=== PATIENT | female | born 1955 | race Caucasian/White ===

== ENCOUNTER → 2017-09-07 | Outpatient (CLI) | payer BC ==
[2017-09-07 07:46] LABS: Basophils # (A) 0.1 k/uL (0-0.2); Basophils % (A) 1 %; Eosinophils # (A) 0.2 k/uL (0-0.7); Eosinophils % (A) 4 %; HCT 44.6 % (34.0-46.0); HGB 14.7 gm/dL (11.4-16.0); Lymphocytes % (A) 37 %; MCH 28.9 pg (25.0-35.0); MCV 87.6 fL (80.0-100.0); Mean Platelet Volume 7.9; Monocytes # (A) 0.3 k/uL (0-1.0); Monocytes % (A) 5 %; Neutrophils # (A) 2.8 k/uL (1.3-7.7); Neutrophils % (A) 51 %; Platelet Count 163 k/uL (150-450); RBC 5.09 m/uL (3.80-5.40); RDW 13.9 % (11.5-15.5); WBC 5.3 k/uL (3.8-10.6)
[2017-09-07 07:56] LABS: ALT 27 U/L (9-52); AST 17 U/L (14-36); Albumin 4.2 g/dL (3.5-5.0); Alkaline Phosphatase 62 U/L (38-126); Anion Gap 13 mmol/L; Blood Urea Nitrogen 17 mg/dL (7-17); Calcium 9.4 mg/dL (8.4-10.2); Carbon Dioxide 25 mmol/L (22-30); Chloride 105 mmol/L (98-107); Cholesterol 192 mg/dL (<200); Glucose 101 mg/dL (74-99); HDL Cholesterol 42 mg/dL (40-60); LDL Cholesterol,Calculated 126 mg/dL (0-99); Potassium 4.4 mmol/L (3.5-5.1); Sodium 143 mmol/L (137-145); Total Bilirubin 0.5 mg/dL (0.2-1.3); Total Protein 6.7 g/dL (6.3-8.2); Triglycerides 121 mg/dL (<150)
[2017-09-07 08:10] LABS: T4, Free (Free Thyroxine) 1.08 ng/dL (0.78-2.19)
[2017-09-07 18:50] LABS: Hemoglobin A1C 5.9 % (4.0-6.0)
== END | disposition home or self-care (01) ==
LOC: LABWHC1 06:56
PROVIDERS: ATTEND Internal Medicine Geriatric Medicine
DX: G50.0 Trigeminal neuralgia (principal); R73.9 Hyperglycemia, unspecified; E03.9 Hypothyroidism, unspecified
CPT/HCPCS: 36415; 80053; 80061; 83036; 84439; 84443; 85025

== ENCOUNTER → 2018-11-21 | Outpatient (CLI) | payer MEDICARE ==
--- NOTE | 2018-11-25 08:39 | MM ---
Reason for exam: screening (asymptomatic). Last mammogram was performed 1 year and 9 months ago. History: Patient is postmenopausal. Family history of breast cancer in sister at age 70. Took estrogen for 15 years. Physical Findings: A clinical breast exam by your physician is recommended on an annual basis and results should be correlated with mammographic findings. MG Screening Mammo w CAD Bilateral CC and MLO view(s) were taken. XCCL view(s) were taken of the right breast. CV view(s) were taken of the left breast. Prior study comparison: February 20, 2017, bilateral MG screening mammo w CAD. January 27, 2016, bilateral MG screening mammo w CAD. There are scattered fibroglandular densities. No significant changes when compared with prior studies. ASSESSMENT: Benign, BI-RAD 2 RECOMMENDATION: Routine screening mammogram of both breasts in 1 year.
== END | disposition home or self-care (01) ==
LOC: RADMAMWWP 13:41
PROVIDERS: ATTEND Internal Medicine Geriatric Medicine
DX: Z12.31 Encounter for screening mammogram for malignant neoplasm of breast (principal)
CPT/HCPCS: 77067

== ENCOUNTER → 2019-05-01 | Outpatient (CLI) | payer MEDICARE ==
--- NOTE | 2019-05-01 16:07 | BD ---
EXAMINATION TYPE: Axial Bone Density DATE OF EXAM: 05/01/2019 COMPARISON: NONE CLINICAL HISTORY: 63 YR OLD FEMALE.....ICD-10 CODE: M81.0 AGE RELATED OSTEOPOROSIS Height: 68.4 Weight: 313 FRAX RISK QUESTIONS: Family History (Parent hip fracture): YES, BUT NO FX Glucocorticoids (More than 3mos): YES, IN THE PAST (Ex: prednisone, prednisolone, methylprednisolone, dexamethasone, and hydrocortisone). Secondary Osteoporosis: YES 3. Menopause before 45: YES AT AGE 31 Rheumatoid Arthritis: YES RISK FACTORS HISTORY OF: Family History of Osteoporosis: YES, 2 SISTERS, NO HIP FX Postmenopausal woman: YES, TOTAL HYST AT AGE 31 YRS OLD Take estrogen and/or progesterone medications: IN PAST FOR ABOUT 10 YRS, NONE NOW Lost more than 2 inches in height since high school: YES Hyperparathyroidism: NO Adrenal Insufficiency: NO MEDICATIONS: Prednisone or other steroids: ON AND OFF IN THE , RA HEAVILY Additional Medications: BP MEDS, MULTIVITAMIN, CA AND VIT D ON AND OFF, GABAPENTIN Additional History: HYPERTENSION, AND RA FACTOR, THAT CAUSED BAD FLAIR UP IN THE 90s FOR 10 YRS, METH OTREATE, EMBREL, HEAVY STEROID USE DURING THIS TIME, 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 Bone mineral density as measured about the Lumbar spine is: ----- L1-L4(G/cm2): 1.473 T Score Values are as follows: ----- L2: 2.7 ----- L3: 2.4 ----- L4: 1.9 ----- L1-L4: 2.4 Bone mineral density has: Increased 8.1% since study of: 02.20.2017 Bone mineral density about the R hip (g/cm2): 1.313 Bone mineral density about the L hip (g/cm2): 1.332 T Score values are as follows: -----R Neck: 1.2 -----L Neck: 1.3 -----R Total: 2.4 -----L Total: 2.6 Bone mineral density has: Increased 1.4% since study of: FRAX%s: THERE IS A 9.4% FOR A MAJOR OSTEOPOROTIC FX AND A 0.1% FOR HIP.....PROBABILITY FOR FX IN 10 Y RS TIME IMPRESSION: Normal (Values between +1 and -1 indicate normal bone mass). Consider repeating this study in 5 year s or sooner if there is some new clinical indication. NOTE: T-SCORE=SD OF THE YOUNG ADULT MEAN.
== END | disposition home or self-care (01) ==
LOC: RADBDWWP 14:39
PROVIDERS: ATTEND Internal Medicine Geriatric Medicine
DX: M81.0 Age-related osteoporosis without current pathological fracture (principal)
CPT/HCPCS: 77080

== ENCOUNTER → 2020-04-22 | Outpatient (CLI) | payer MEDICARE ==
--- NOTE | 2020-04-26 11:06 | MM ---
Reason for exam: screening (asymptomatic). Last mammogram was performed 1 year and 5 months ago. History: Patient is postmenopausal. Family history of breast cancer in sister at age 70. Took estrogen for 15 years. Physical Findings: A clinical breast exam by your physician is recommended on an annual basis and results should be correlated with mammographic findings. MG Screening Mammo w CAD Bilateral CC and MLO view(s) were taken. Prior study comparison: November 21, 2018, bilateral MG screening mammo w CAD. February 20, 2017, bilateral MG screening mammo w CAD. The breast tissue is almost entirely fat. No significant changes when compared with prior studies. ASSESSMENT: Benign, BI-RAD 2 RECOMMENDATION: Routine screening mammogram of both breasts in 1 year.
== END | disposition home or self-care (01) ==
LOC: RADMAMWWP 09:45
PROVIDERS: ATTEND Internal Medicine Geriatric Medicine
DX: Z12.31 Encounter for screening mammogram for malignant neoplasm of breast (principal)
CPT/HCPCS: 77067

== ENCOUNTER → 2021-07-19 | Outpatient (CLI) | payer MEDICARE ==
--- NOTE | 2021-07-21 11:16 | MM ---
Reason for exam: screening (asymptomatic). Last mammogram was performed 1 year and 3 months ago. History: Patient is postmenopausal. Family history of breast cancer in sister at age 70. Took estrogen for 15 years. Physical Findings: A clinical breast exam by your physician is recommended on an annual basis and results should be correlated with mammographic findings. MG 3D Screening Mammo W/Cad Bilateral CC and MLO view(s) were taken. XCCL view(s) were taken of the right breast. Prior study comparison: April 22, 2020, bilateral MG screening mammo w CAD. November 21, 2018, bilateral MG screening mammo w CAD. There are scattered fibroglandular densities. No significant changes when compared with prior studies. ASSESSMENT: Negative, BI-RAD 1 RECOMMENDATION: Routine screening mammogram of both breasts in 1 year.
== END | disposition home or self-care (01) ==
LOC: RADMAMWWP 07:45
PROVIDERS: ATTEND Internal Medicine Geriatric Medicine
DX: Z12.31 Encounter for screening mammogram for malignant neoplasm of breast (principal); Z78.0 Asymptomatic menopausal state; Z80.3 Family history of malignant neoplasm of breast
CPT/HCPCS: 77063; 77067

== ENCOUNTER → 2021-09-01 | Outpatient (CLI) | payer MEDICARE ==
--- NOTE | 2021-09-01 07:57 | US ---
EXAMINATION TYPE: US abdomen complete DATE OF EXAM: 09/01/2021 COMPARISON: US CLINICAL HISTORY: R10.9 ABDOMINAL PAIN. Right back pain; HT 5'9,WT 320lb. EXAM MEASUREMENTS: Liver Length: 22.4 cm Gallbladder Wall: 0.1 cm CBD: 0.5 cm Spleen: 9.8 cm Right Kidney: 13.5 x 6.1 x 5.5 cm Left Kidney: 11.8 x 5.9 x 5.8 cm Pancreas: hyperechoic with tail obscured by overlying bowel gas Liver: enlarged, hyperechoic without focal mass, there is poor through transmission Gallbladder: elongated at 12.7cm, but height is wnl; no masses seen Evidence for sonographic Ellis's sign: no CBD: wnl Spleen: wnl Right Kidney: No hydronephrosis or masses seen Left Kidney: No hydronephrosis or masses seen Upper IVC: wnl Abd Aorta: wnl The intrahepatic portion of the IVC and proximal abdominal aorta are within normal limits. There is no evidence of cholelithiasis. Common bile duct is unremarkable. The visualized portions of the orr creas are homogenous. The spleen is unremarkable. Kidneys are symmetric and free of hydronephrosis. No renal lesions are seen. IMPRESSION: Correlate for probable hepatic steatosis, there is hepatomegaly
== END | disposition home or self-care (01) ==
LOC: RADUSWWP 06:51
PROVIDERS: ATTEND Internal Medicine Geriatric Medicine
DX: R16.0 Hepatomegaly, not elsewhere classified (principal)
CPT/HCPCS: 76700

== ENCOUNTER → 2022-08-01 | Outpatient (CLI) | payer MEDICARE ==
--- NOTE | 2022-08-01 13:21 | BD ---
EXAMINATION TYPE: Axial Bone Density DATE OF EXAM: 08/01/2022 CLINICAL HISTORY: 66YEAR old Female. ICD-10 CODE: M81.0 AGE-RELATED OSTEOPOROSIS Height: 69 Weight: 329.7 FRAX RISK QUESTIONS: Alcohol (3 or more units per day): no Family History (Parent hip fracture): no Glucocorticoids (More than 3mos): no (Ex: prednisone, prednisolone, methylprednisolone, dexamethasone, and hydrocortisone). History of Fracture in Adulthood: no Secondary Osteoporosis: 1. Type 1 Diabetes: no 2. Hyperthyroidism: no 3. Menopause before 45: yes 4. Malnutrition: no 5. Chronic liver disease: no Rheumatoid Arthritis: no Current Tobacco Use: no RISK FACTORS HISTORY OF: Surgery to Spine/Hip(right/left)/Wrist (right/left): no Family History of Osteoporosis: yes Active: no Diet low in dairy products/other sources of calcium: no Postmenopausal woman: yes Lost more than 2 inches in height since high school: no MEDICATIONS: metformin Additional History: EXAM MEASUREMENTS: Bone mineral densitometry was performed using the [employer] System. Bone mineral density as measured about the Lumbar spine is: ----- L1-L4(G/cm2): 1.399 T Score Values are as follows: ----- L1: 2.3 ----- L2: 1.6 ----- L3: 1.5 ----- L4: 1.8 ----- L1-L4: 1.8 Z Score Values are as follows: ----- L1: 28 ----- L2: 2.1 ----- L3: 2.0 ----- L4: 2.2 ----- L1-L4: 2.3 Bone mineral density has: decreased -5.0 % since study of: 05.01.2019 Bone mineral density about the R hip (g/cm2): 1.276 Bone mineral density about the L hip (g/cm2): 1.251 T Score values are as follows: -----R Neck: 0.8 -----L Neck: 0.7 -----R Total: 2.1 -----L Total: 1.9 Z Score values are as follows: -----R Neck: 1.7 -----L Neck: 1.6 -----R Total: 2.7 -----L Total: 2.5 Bone mineral density has: decreased -4.5 % since study of: 05.01.2019 FRAX%s: The graph provided illustrates a 8.0% chance for a major osteoporotic fx and a 0.2% chance fo r the hips probability for fx in 10 years time. IMPRESSION: Normal (Values between +1 and -1 indicate normal bone mass). Consider repeating this study in 5 year s or sooner if there is some new clinical indication. NOTE: T-SCORE=SD OF THE YOUNG ADULT MEAN.
--- NOTE | 2022-08-02 07:52 | MM ---
Reason for Exam: Screening (asymptomatic). Last screening mammogram was performed 12 month(s) ago. Patient History: Menarche at age 10. First Full-Term at age 21. Left ovary removed at age 32. Right ovary removed at age 32. Hysterectomy at age 32. Postmenopausal. Patient has history of breast feeding. Estrogen for 15 years until age 51. Sister had breast cancer, age 70. Risk Values: Jany 5 year model risk: 3.3%. NCI Lifetime model risk: 10.4%. Prior Study Comparison: 11/21/2018 Bilateral Screening Mammogram, [facility]. 04/22/2020 Bilateral Screening Mammogram, [facility]. 07/19/2021 Bilateral Screening Mammogram, [facility]. Tissue Density: There are scattered fibroglandular densities. Findings: Analyzed By CAD. There is no suspicious group of microcalcifications or new suspicious mass in either breast. Overall Assessment: Negative, BI-RAD 1 Management: Screening Mammogram of both breasts in 1 year. A clinical breast exam by your physician is recommended on an annual basis and results should be correlated with mammographic findings. Electronically signed and approved by: Dirk Souza M.D. Radiologis
== END | disposition home or self-care (01) ==
LOC: RADMAMWWP 08:12
PROVIDERS: ATTEND Internal Medicine Geriatric Medicine
DX: Z12.31 Encounter for screening mammogram for malignant neoplasm of breast (principal); M81.0 Age-related osteoporosis without current pathological fracture; Z78.0 Asymptomatic menopausal state; Z80.3 Family history of malignant neoplasm of breast
CPT/HCPCS: 77063; 77067; 77080

== ENCOUNTER → 2023-05-09 | Outpatient (CLI) | payer MEDICARE ==
[2023-05-09 12:19] LABS: African American GFR (CKD) >90 (>60 ml/min/1.73 sqM); Blood Urea Nitrogen 12 mg/dL (7-17); Non-African American GFR(CKD) 87 (>60 ml/min/1.73 sqM)
--- NOTE | 2023-05-16 18:14 | CT ---
EXAMINATION TYPE: CT ChestAbdPelvis w con CT DLP: 2909.8 mGycm, Automated exposure control for dose reduction was used. DATE OF EXAM: 05/09/2023 1:50 PM COMPARISON: No prior CTs available CLINICAL INDICATION:Female, 67 years old with history of C18.7 COLON CANCER; [facility], follow up colon ca Technique: Multiple axial images of the chest, abdomen, and pelvis were obtained. Two-dimensional cor onal and sagittal reconstructions were obtained. Contrast used:100 mL of Isovue 300 with IV Contrast, Oral contrast used: with Oral Contrast Findings: CHEST: LOWER NECK: No significant findings. MEDIASTINUM: No gross evidence of adenopathy. HEART: Mild cardiomegaly..Mild to moderate coronary artery calcification and/or stents. No appreciab le pericardial effusion. VASCULATURE: Mild calcification of the aorta without evidence of aneurysm or dissection. Ascending a sahil is ectatic at 3.6 cm. Calcification of the proximal left subclavian without significant narrowin g. Grossly preserved enhancement of the pulmonary arteries in the limits of the exam. Main pulmonary trunk is nonenlarged, 2.6 cm. SOFT TISSUES/LYMPH NODES: Unremarkable. No axillary adenopathy. LUNGS/ PLEURA: Small calcified granuloma in the right middle lobe. No mass or sizable nodule of [place] rn. Mild scarring senescent changes. No consolidation, pleural effusion or pneumothorax. AIRWAY: Patent and unremarkable. MUSCULOSKELETAL: No lytic/blastic lesion or acute bony abnormality. Mild to moderate degenerative luisa nges of the thoracic and lumbosacral spine. Mild bilateral hip arthropathy. Mild degenerative change pubic symphysis. ABDOMEN: ABDOMEN LIVER: Fatty infiltrated without evidence of mass. GALLBLADDER AND BILE DUCTS: Unremarkable. PANCREAS: Unremarkable. SPLEEN: Unremarkable. ADRENAL GLANDS: Mildly thickened, left greater than right, without evidence of discrete mass; this co uld be related to hyperplasia or adenomatoid change. KIDNEYS AND URETERS: Kidneys enhance symmetrically. There is no evidence of hydronephrosis. PELVIS BLADDER: Unremarkable REPRODUCTIVE: The uterus is absent, likely postsurgical. Ovaries not readily identified. No suggestio n of pelvic mass. ABDOMEN & PELVIS STOMACH AND BOWEL: Contrast traverses the stomach and small bowel loops without evidence of obstructi on. Appendix is not identified with certainty, however there is no inflammatory process seen in the R LQ. Contrast is just reaching the right colon. There is moderate stool throughout the proximal aspect s and less continuing distally. Some segments of colon are not distended not well assessed. There is an intact appearing anastomosis at the rectosigmoid junction. No evidence of large bowel obstruction. PERITONEUM: No evidence of pneumoperitoneum or free fluid. Mild joaquin mesentery appearance in the abdomen. No enlarged regional nodes. VASCULATURE: Moderate atherosclerotic calcification of the abdominal aorta and branches. Mild to mode rate narrowing of the proximal celiac and superior mesenteric arteries. Bilaterally there appear to b e a main renal artery and a smaller accessory renal artery which are patent. The main arteries appear mildly narrowed proximally. No evidence of AAA. Relatively mild disease throughout the iliac trees. MUSCULOSKELETAL: No lytic/blastic lesion or acute bony abnormality. Mild to moderate degenerative luisa nges of the thoracic and lumbosacral spine. Mild bilateral hip arthropathy. Mild degenerative change pubic symphysis. LYMPH NODES: No gross evidence for lymphadenopathy. SOFT TISSUE/ABDOMINAL WALL: Small fat-containing umbilical hernia. IMPRESSION: 1. Postoperative changes with anastomosis at the rectosigmoid junction. 2. No evidence of metastatic disease.
== END | disposition home or self-care (01) ==
LOC: RADCTMAIN 11:45
PROVIDERS: ATTEND Internal Medicine
DX: C18.7 Malignant neoplasm of sigmoid colon (principal); Z98.890 Other specified postprocedural states; Z71.3 Dietary counseling and surveillance
CPT/HCPCS: 82565; 84520; 71260; 74177; 36415; Q9967

== ENCOUNTER → 2023-08-03 | Outpatient (CLI) | payer MEDICARE ==
--- NOTE | 2023-08-07 11:25 | MM ---
Reason for Exam: Screening (asymptomatic). Last screening mammogram was performed 12 month(s) ago. Patient History: Menarche at age 10. First Full-Term at age 21. Left ovary removed at age 32. Right ovary removed at age 32. Hysterectomy at age 32. Postmenopausal. Patient has history of breast feeding. Colorectal cancer at or over age 48. Estrogen for 15 years until age 51. Sister had breast cancer, age 70. Risk Values: Jany 5 year model risk: 3.3%. NCI Lifetime model risk: 9.9%. Prior Study Comparison: 04/22/2020 Bilateral Screening Mammogram, [facility]. 07/19/2021 Bilateral Screening Mammogram, [facility]. 08/01/2022 Bilateral MG 3D screening mammo w/cad, [facility]. Tissue Density: There are scattered areas of fibroglandular density. Findings: Analyzed By CAD. There is no suspicious group of microcalcifications or new suspicious mass in either breast. Benign-appearing calcifications. Overall Assessment: Benign, BI-RAD 2 Management: Screening Mammogram of both breasts in 1 year. . Patient should continue monthly self-breast exams. A clinical breast exam by your physician is recommended on an annual basis. This exam should not preclude additional follow-up of suspicious palpable abnormalities. Note on Jany scores and lifetime risk: 1. A Jany score greater than 3% is considered moderate risk. If this is the case, consider specialist referral to assess eligibility for a risk reducing agent. 2. If overall lifetime risk for the development of breast cancer is 20% or higher, the patient may qualify for future screening with alternating mammogram and breast MRI. Electronically signed and approved by: Bennett Nugent M.D. Radiologis
== END | disposition home or self-care (01) ==
LOC: RADMAMWWP 08:20
PROVIDERS: ATTEND Internal Medicine Geriatric Medicine
DX: Z12.31 Encounter for screening mammogram for malignant neoplasm of breast (principal); Z78.0 Asymptomatic menopausal state; Z80.3 Family history of malignant neoplasm of breast
CPT/HCPCS: 77063; 77067

== ENCOUNTER → 2024-05-12 | Outpatient (CLI) | payer MEDICARE ==
[2024-05-12 10:32] LABS: African American GFR (CKD) 75 (>60 ml/min/1.73 sqM); Blood Urea Nitrogen 15 mg/dL (7-17); Non-African American GFR(CKD) 65 (>60 ml/min/1.73 sqM)
--- NOTE | 2024-05-12 12:12 | CT ---
EXAMINATION TYPE: CT ChestAbdPelvis w con CT DLP: 3009.9 mGycm, Automated exposure control for dose reduction was used. DATE OF EXAM: 05/12/2024 11:59 AM COMPARISON: CT chest abdomen pelvis 07/10/2022 CLINICAL INDICATION:Female, 68 years old with history of C187 COLON CANCER; [facility], COLON CA F/U Technique: Multiple axial images of the chest, abdomen, and pelvis were obtained following the intrav enous administration of 100 mL Isovue-300. Oral contrast was administered. Two-dimensional coronal an d sagittal reconstructions were obtained. Findings: CHEST: LUNGS/ PLEURA: No pleural effusion, pneumothorax, focal consolidation. No suspicious pulmonary nodule or mass. AIRWAY: Patent and unremarkable.. HEART: Size within normal limits.No pericardial effusion. MEDIASTINUM: No evidence of adenopathy greater than 1 cm short axis. VASCULATURE: No aortic aneurysm. MUSCULOSKELETAL: No acute osseous abnormalities. No aggressive osseous lesion. Mild multilevel degene rative disc disease. SOFT TISSUES/LYMPH NODES: Unremarkable. LOWER NECK: No significant findings. ABDOMEN: ABDOMEN LIVER: No focal lesion. Enlarged measuring 23.3 cm in CC dimension. GALLBLADDER AND BILE DUCTS: Unremarkable. PANCREAS: Unremarkable. SPLEEN: Unremarkable. ADRENAL GLANDS: Similar thickening of the adrenal glands post related to hyperplasia or adenomatoid c hange. KIDNEYS AND URETERS: No evidence of hydronephrosis or renal calculus. The kidneys enhance symmetrical ly. Contrast is demonstrated within both collecting systems on the delayed phase. PELVIS BLADDER: Underdistended, limiting evaluation. REPRODUCTIVE: The uterus is surgically absent. ABDOMEN & PELVIS STOMACH AND BOWEL: Stomach and duodenum are unremarkable. Enteric contrast reaches the mid small guillermina l. No focal bowel wall thickening or surrounding inflammatory changes. Postsurgical changes with the rectosigmoid anastomosis. No focal bowel wall thickening at this region. No evidence of bowel obstruc tion. PERITONEUM: No evidence of pneumoperitoneum or free fluid. Similar left mid abdomen joaquin mesentery. VASCULATURE: Mild to moderate atherosclerotic calcifications are present throughout the abdominal aor ta and its branches. No abdominal aortic aneurysm. MUSCULOSKELETAL: No acute osseous abnormalities. No aggressive osseous lesion. Mild multilevel degene rative disc disease. Degenerative changes of the pubic symphysis. LYMPH NODES: No evidence for lymphadenopathy. SOFT TISSUE/ABDOMINAL WALL: Small fat filled umbilical hernia. IMPRESSION: 1. Postoperative changes with anastomosis at the rectosigmoid junction. 2. No evidence of metastatic disease. [facility], , 05/12/2024 12:10 PM
== END | disposition home or self-care (01) ==
LOC: RADCTMAIN 09:44
PROVIDERS: ATTEND Internal Medicine
DX: C18.7 Malignant neoplasm of sigmoid colon (principal); Z71.3 Dietary counseling and surveillance; Z98.890 Other specified postprocedural states
CPT/HCPCS: 82565; 84520; 71260; 74177; 36415; Q9967

== ENCOUNTER → 2024-08-04 | Outpatient (CLI) | payer MEDICARE ==
[2024-08-04 15:49] LABS: C Reactive Protein <0.30 mg/dL (0.00-0.80)
[2024-08-04 17:09] LABS: NT-Pro-B-Type Natriuretic Pept 83 pg/mL (0-125)
== END | disposition home or self-care (01) ==
LOC: LABWHC1 11:18
PROVIDERS: ATTEND Student in an Organized Health Care Education/Training Program
DX: Z13.6 Encounter for screening for cardiovascular disorders (principal); I50.9 Heart failure, unspecified; E03.9 Hypothyroidism, unspecified; E11.9 Type 2 diabetes mellitus without complications; E78.5 Hyperlipidemia, unspecified; R79.89 Other specified abnormal findings of blood chemistry; D72.9 Disorder of white blood cells, unspecified
CPT/HCPCS: 36415; 83880; 84443; 86140

== ENCOUNTER → 2024-08-28 | Outpatient (CLI) | payer MEDICARE ==
--- NOTE | 2024-08-28 14:51 | BD ---
EXAMINATION TYPE: Axial Bone Density DATE OF EXAM: 08/28/2024 CLINICAL HISTORY: 68 years old Female. ICD-10 CODE: M81.0 AGE-RELATED OSTEOPOROSIS W/O CURRENT PATHO LO , Additional History: Height: 69 Weight: 308.1 FRAX RISK QUESTIONS: Alcohol (3 or more units per day): no Family History (Parent hip fracture): no Glucocorticoids (More than 3mos): no (Ex: prednisone, prednisolone, methylprednisolone, dexamethasone, and hydrocortisone). History of Fracture in Adulthood: no Secondary Osteoporosis: 1. Type 1 Diabetes: no 2. Hyperthyroidism: no 3. Menopause before 45: yes 4. Malnutrition: no 5. Chronic liver disease: no Rheumatoid Arthritis: no Current Tobacco Use: no RISK FACTORS HISTORY OF: Surgery to Spine/Hip(right/left)/Wrist (right/left): no EXAM MEASUREMENTS: Bone mineral densitometry was performed using the [employer] System. Bone mineral density as measured about the Lumbar spine is: ----- L1-L4(G/cm2): 1.431 T Score Values are as follows: ----- L1: 2.1 ----- L2: 1.8 ----- L3: 2.4 ----- L4: 1.9 ----- L1-L4: 2.1 Z Score Values are as follows: ----- L1: 2.6 ----- L2: 2.3 ----- L3: 2.9 ----- L4: 2.4 ----- L1-L4: 2.6 Bone mineral density has: increased 2.3 % since study of: 08.01.2022 Bone mineral density about the R hip (g/cm2): 1.267 Bone mineral density about the L hip (g/cm2): 1.263 T Score values are as follows: -----R Neck: 0.8 -----L Neck: 0.7 -----R Total: 2.1 -----L Total: 2.0 Z Score values are as follows: -----R Neck: 1.8 -----L Neck: 1.7 -----R Total: 2.7 -----L Total: 2.7 Bone mineral density has: increased 0.2 % since study of: 3 FRAX%s: The graph provided illustrates a 5.2% chance for a major osteoporotic fx and a 0.2% chance fo r the hips probability for fx in 10 years time. IMPRESSION: Normal (Values between +1 and -1 indicate normal bone mass). Consider repeating this study in 5 year s or sooner if there is some new clinical indication. NOTE: T-SCORE=SD OF THE YOUNG ADULT MEAN. [facility], , 08/28/2024 2:48 PM
--- NOTE | 2024-09-02 12:23 | MM ---
Reason for Exam: Screening (asymptomatic). Last mammogram was performed 1 year(s) and 1 month(s) ago. Patient History: Menarche at age 10. First Full-Term at age 21. Left ovary removed at age 32. Right ovary removed at age 32. Hysterectomy at age 32. Postmenopausal. Patient has history of breast feeding. Colorectal cancer at or over age 50. Estrogen for 15 years until age 51. Sister had breast cancer, age 70. Daughter had breast cancer, left, under age 50. Risk Values: Jany 5 year model risk: 7.0%. NCI Lifetime model risk: 19.1%. Prior Study Comparison: 02/20/2017 Bilateral Screening Mammogram, [facility]. 11/21/2018 Bilateral Screening Mammogram, [facility]. 04/22/2020 Bilateral Screening Mammogram, [facility]. 07/19/2021 Bilateral Screening Mammogram, [facility]. 08/01/2022 Bilateral MG 3D screening mammo w/cad, [facility]. 08/03/2023 Bilateral MG 3D screening mammo w/cad, [facility]. Tissue Density: There are scattered areas of fibroglandular density. Findings: Analyzed By CAD. There is no suspicious group of microcalcifications or new suspicious mass in either breast. Overall Assessment: Negative, BI-RAD 1 Management: Screening Mammogram of both breasts in 1 year. . Patient should continue monthly self-breast exams. A clinical breast exam by your physician is recommended on an annual basis. This exam should not preclude additional follow-up of suspicious palpable abnormalities. Note on Jany scores and lifetime risk: 1. A Jany score greater than 3% is considered moderate risk. If this is the case, consider specialist referral to assess eligibility for a risk reducing agent. 2. If overall lifetime risk for the development of breast cancer is 20% or higher, the patient may qualify for future screening with alternating mammogram and breast MRI. [facility], , 08/28/2024 1:39 PM. Electronically signed and approved by: Dirk Souza M.D. Radiologis
== END | disposition home or self-care (01) ==
LOC: RADBDWWP 13:02
PROVIDERS: ATTEND Internal Medicine Geriatric Medicine
DX: Z12.31 Encounter for screening mammogram for malignant neoplasm of breast (principal); M81.0 Age-related osteoporosis without current pathological fracture; R92.323 Mammographic fibroglandular density, bilateral breasts; Z78.0 Asymptomatic menopausal state; Z80.3 Family history of malignant neoplasm of breast
CPT/HCPCS: 77063; 77067; 77080

== ENCOUNTER → 2024-11-12 | Outpatient (CLI) | payer MEDICARE ==
[2024-11-12 10:27] LABS: HCT 44.1 % (37.2-46.3); HGB 13.9 g/dL (12.0-15.0); MCH 28.4 pg (27.0-32.0); MCHC 31.5 g/dL (32.0-37.0); MCV 90.2 FL (80.0-97.0); NRBC Per 100 WBC 0 X 10*3/uL (0.00-0.01); Platelet Count 168 X 10*3/uL (140-440); RBC 4.89 X 10*6/uL (4.10-5.20); RDW 14.6 % (11.5-14.5); WBC 6.40 X 10*3/uL (4.50-10.00)
[2024-11-12 10:57] LABS: ALT 21 U/L (8-44); AST 20 U/L (13-35); Albumin 4.3 g/dL (3.8-4.9); Albumin/Globulin Ratio 1.79 Ratio (1.60-3.17); Alkaline Phosphatase 57 U/L (41-126); Anion Gap 11.50 mmol/L (4.00-12.00); BUN/Creat Ratio 24.43 Ratio (12.00-20.00); Blood Urea Nitrogen 17.1 mg/dL (9.0-27.0); Calcium 9.2 mg/dL (8.7-10.3); Carbon Dioxide 21.5 mmol/L (21.6-31.8); Chloride 107 mmol/L (96-109); Cholesterol 117.00 mg/dL (0.00-200.00); Globulin 2.4 g/dL (1.6-3.3); Glucose 107 mg/dL (70-110); HDL Cholesterol 39.10 mg/dL (40.00-60.00); LDL Cholesterol,Calculated 40.3 mg/dL (0.0-131.0); Potassium 4.5 mmol/L (3.5-5.5); Sodium 140 mmol/L (135-145); Total Protein 6.7 g/dL (6.2-8.2); Triglycerides 188.00 mg/dL (0.00-149.00); VLDL Calculation 37.60 mg/dL (5.00-40.00)
[2024-11-12 11:15] LABS: NT-Pro-B-Type Natriuretic Pept 85 pg/mL (0-125)
== END | disposition home or self-care (01) ==
LOC: LABWHC1 07:08
PROVIDERS: ATTEND Internal Medicine
DX: D72.9 Disorder of white blood cells, unspecified (principal); R79.89 Other specified abnormal findings of blood chemistry; E11.9 Type 2 diabetes mellitus without complications; I50.9 Heart failure, unspecified; E78.5 Hyperlipidemia, unspecified; E03.9 Hypothyroidism, unspecified
CPT/HCPCS: 36415; 80053; 80061; 82378; 83036; 83880; 84443; 85027; 86140